=== PATIENT | female | born 1970 | race Two or more races ===

== ENCOUNTER 2018-12-28 14:56 | Outpatient (CLI) | payer OTHER | END 2018-12-28 15:24 | disposition home or self-care (01) | LOC: MAMO-SONO 14:56 | DX: N60.01 Solitary cyst of right breast (principal); N60.02 Solitary cyst of left breast ==

== ENCOUNTER 2019-12-27 15:58 | Outpatient (CLI) | payer OTHER | END 2019-12-27 16:04 | disposition home or self-care (01) | LOC: RAD 15:58 | PROVIDERS: ATTEND Orthopaedic Surgery Sports Medicine | DX: M75.52 Bursitis of left shoulder (principal) ==

== ENCOUNTER 2020-01-01 13:43 | Outpatient (CLI) | payer OTHER | END 2020-01-01 13:51 | disposition home or self-care (01) | LOC: MAMO-SONO 13:43 | PROVIDERS: ATTEND Obstetrics & Gynecology | DX: Z12.31 Encounter for screening mammogram for malignant neoplasm of breast (principal); N60.01 Solitary cyst of right breast ==